=== PATIENT | female | born 1980 | race Caucasian/White ===

== ENCOUNTER 2016-10-08 18:57 | Emergency (ER) | payer MEDICAID ==
[~2016-10-08] VITALS: Ht 165.1 cm; Wt 70.5 kg
[2016-10-08 20:02] LABS: HEMOGLOBIN 11.2 g/dL (11.7-16.4)
[2016-10-08 20:12] LABS: BLOOD UREA NITROGEN 13 mg/dL (7-18)
[2016-10-08 21:37] VITALS: BP 127/74
[2016-10-08] MEDS ORDERED: OXYC-302 PO (21:38)
== END 2016-10-08 22:02 | disposition home or self-care (01) ==
LOC: ED 21:25
DX: Z37.0 Single live birth (principal); K59.00 Constipation, unspecified
CPT/HCPCS: 36415; 74020; 80048; 81003; 82040; 85025